=== PATIENT | female | born 1985 | race Caucasian/White ===

== ENCOUNTER 2017-06-29 02:32 | Inpatient (IN) | payer MEDICAID ==
[2017-06-29] MEDS ORDERED: IBUPROFEN 600 MG TAB PO (03:00)
[2017-06-29] MEDS ORDERED: BUTORPHANOL 2 MG INJ IV (03:00)
[2017-06-29] MEDS ORDERED: MISOPROSTOL 200 MCG TAB PR (03:00)
[2017-06-29] MEDS ORDERED: AMPICILLIN 2 GM/NS (PMX) 100 ML IV (03:00)
[2017-06-29] MEDS ORDERED: CARBOPROST 250 MCG INJ IM (03:00)
[2017-06-29] MEDS ORDERED: HYDROCODONE/APAP (5/325) TAB PO ×3 (03:00→12:00)
[2017-06-29] MEDS ORDERED: OXYTOCIN 30 UNITS/LR 500 ML IV ×3 (03:00)
[2017-06-29] MEDS: LACTATED RINGER'S 500 ML IV (03:00)
[2017-06-29] MEDS ORDERED: METHYLERGONOVINE 0.2 MG INJ IM (03:00)
[2017-06-29] MEDS: LACTATED RINGER'S 1,000 ML IV ×3 (03:23→08:17)
[2017-06-29 03:54] LABS: ADD MAN DIFF? NO
[2017-06-29 04:05] LABS: BASOPHILS % 0.2 % (0.0-2.0); EOSINOPHILS # 0.1 10^3/ul (0.0-0.5); EOSINOPHILS % 1.7 % (0.0-7.0); HEMATOCRIT 30.9 % (37.0-47.0); HEMOGLOBIN 10.9 g/dl (12.0-16.0); LYMPHOCYTES # 1.7 10^3/ul (0.8-2.9); LYMPHOCYTES % 20.3 % (15.0-51.0); MEAN CORPUSCULAR HEMOGLOBIN 32.2 pg (29.0-33.0); MEAN CORPUSCULAR HGB CONC 35.3 g/dl (32.0-37.0); MEAN CORPUSCULAR VOLUME 91.2 fl (82.0-101.0); MEAN PLATELET VOLUME 10.8 fl (7.4-10.4); MONOCYTE # 0.4 10^3/ul (0.3-0.9); MONOCYTES % 4.8 % (0.0-11.0); NEUTROPHILS % 72.4 % (39.0-77.0); PLATELET COUNT 196 10^3/UL (140-415); RED BLOOD COUNT 3.39 10^6/ul (4.20-5.40); RED CELL DISTRIBUTION WIDTH 13.2 % (11.5-14.5)
[2017-06-29 04:05] LABS: WHITE BLOOD COUNT 8.3 10^3/ul (4.8-10.8)
[2017-06-29 04:22] LABS: INR 0.92; PARTIAL THROMBOPLASTIN TIME 29.7 Sec (25.0-35.0); PROTIME 12.4 Sec (11.9-14.9)
[2017-06-29] MEDS: BUTORPHANOL 2 MG INJ IV (05:00)
[2017-06-29] MEDS: AMPICILLIN 2 GM/NS (PMX) 100 ML IV (05:17)
[2017-06-29] MEDS ORDERED: AMPICILLIN 1 GM/NS (PMX) 50 ML IV (07:00)
[2017-06-29] MEDS ORDERED: FENTAnyl 2MCG/ML-ROPIV 0.2% 100 ML (07:59)
[2017-06-29] MEDS: AMPICILLIN 1 GM/NS (PMX) 50 ML IV (08:28)
[2017-06-29] MEDS: OXYTOCIN 30 UNITS/LR 500 ML IV ×3 (09:03→19:00)
[2017-06-29] MEDS: LIDOCAINE 1% (MPF) 30 ML INJ INJ (10:58)
[2017-06-29] MEDS ORDERED: FENTAnyl 2MCG/ML-ROPIV 0.2% 100 ML BAG EPI (12:00)
[2017-06-29] MEDS ORDERED: DIBUCAINE 1% 30 GM OINT PR (12:00)
[2017-06-29] MEDS ORDERED: ACETAMINOPHEN 325 MG TAB PO (12:00)
[2017-06-29] MEDS ORDERED: NALOXONE (0.4 MG/ML) INJ IV (12:00)
[2017-06-29] MEDS ORDERED: ONDANSETRON 4 MG INJ IV (12:00)
[2017-06-29] MEDS ORDERED: OXYCODONE/ASPIRIN (4.88/325) TAB PO ×2 (12:00)
[2017-06-29] MEDS: IBUPROFEN 600 MG TAB PO ×2 (12:05→17:38)
[2017-06-29] MEDS: BENZOCAINE 20% 56 ML SPRAY TOP (16:34)
[2017-06-29] MEDS: LANOLIN 7 GM TUBE TOP (16:34)
[2017-06-29] MEDS: WITCH HAZEL/GLYCERIN PAD PR (17:39)
[2017-06-29] MEDS: SENNA/DOCUSATE NA (8.6MG/50MG) TAB PO (21:07)
[2017-06-29 22:57] LABS: RAPID PLASMA REAGIN NONREACTIVE (NR)
[2017-06-30] MEDS: IBUPROFEN 600 MG TAB PO ×5 (00:02→23:31)
[2017-06-30 08:53] LABS: ADD MAN DIFF? NO
[2017-06-30 09:00] LABS: WHITE BLOOD COUNT 12.1 10^3/ul (4.8-10.8)
[2017-06-30 09:00] LABS: BASOPHILS % 0.2 % (0.0-2.0); EOSINOPHILS # 0.1 10^3/ul (0.0-0.5); EOSINOPHILS % 0.7 % (0.0-7.0); HEMATOCRIT 31.7 % (37.0-47.0); HEMOGLOBIN 11.1 g/dl (12.0-16.0); LYMPHOCYTES # 2.2 10^3/ul (0.8-2.9); LYMPHOCYTES % 18.1 % (15.0-51.0); MEAN CORPUSCULAR HEMOGLOBIN 32.2 pg (29.0-33.0); MEAN CORPUSCULAR VOLUME 91.9 fl (82.0-101.0); MEAN PLATELET VOLUME 10.4 fl (7.4-10.4); MONOCYTE # 0.5 10^3/ul (0.3-0.9); MONOCYTES % 4.1 % (0.0-11.0); NEUTROPHIL # 9.2 10^3/ul (1.6-7.5); NEUTROPHILS % 76.3 % (39.0-77.0); PLATELET COUNT 188 10^3/UL (140-415); RED BLOOD COUNT 3.45 10^6/ul (4.20-5.40); RED CELL DISTRIBUTION WIDTH 13.4 % (11.5-14.5)
[2017-06-30] MEDS: SENNA/DOCUSATE NA (8.6MG/50MG) TAB PO ×2 (09:42→20:57)
[2017-07-01] MEDS: IBUPROFEN 600 MG TAB PO (05:31)
[2017-07-01] MEDS: MEASLES,MUMPS,RUBELLA VACCINE INJ SC* (09:00)
[2017-07-01] MEDS: SENNA/DOCUSATE NA (8.6MG/50MG) TAB PO (09:54)
== END 2017-07-01 12:55 | disposition home or self-care (01) | DRG 775 ==
LOC: OBT 02:32 → L-D 02:33 → OBT 03:10 → L-D 03:14 → PP1 12:13
PROVIDERS: Obstetrics & Gynecology
PROC: 10E0XZZ Delivery of Products of Conception, External Approach (ICD-10-PCS; principal; 2017-06-29)
PROC: 0KQM0ZZ Repair Perineum Muscle, Open Approach (ICD-10-PCS; 2017-06-29)
PROC: 3E033VJ Introduction of Other Hormone into Peripheral Vein, Percutaneous Approach (ICD-10-PCS; 2017-06-29)
DX: O48.0 Post-term pregnancy (principal); O69.81X0 Labor and delivery complicated by cord around neck, without compression, not applicable or unspecified; Z3A.40 40 weeks gestation of pregnancy; O70.1 Second degree perineal laceration during delivery; Z37.0 Single live birth
CPT/HCPCS: 36415; 62319; 85025; 85610; 85730; 86592; 86850; 86900; 86901

== ENCOUNTER 2018-08-14 14:49 | Emergency (ER) | payer MEDICAID ==
[2018-08-14] MEDS: IBUPROFEN 200 MG TAB PO (17:43)
== END 2018-08-14 20:40 | disposition left against medical advice (07) ==
LOC: FTE 14:49
DX: N64.4 Mastodynia (principal)
CPT/HCPCS: 76641; 76641-50; 81025; 99284-25